=== PATIENT | male | born 1955 | race Caucasian/White ===

== ENCOUNTER 2024-01-03 16:59 | Emergency (ER) | payer OTHER ==
[~2024-01-03] VITALS: Ht 157.5 cm; Wt 40.8 kg
[2024-01-03 17:21] VITALS: BP 125/77; PULSE 86; RESP 18; TEMP 98; O2SAT 98
== END 2024-01-03 20:08 | disposition home or self-care (01) ==
LOC: MED 16:59
DX: K94.23 Gastrostomy malfunction (principal); Z79.899 Other long term (current) drug therapy
CPT/HCPCS: 99283